=== PATIENT | male | born 1985 | race Caucasian/White ===

== ENCOUNTER → 2018-08-11 17:05 | Emergency (ER) | payer SELFPAY ==
[~2018-08-11 17:05] MED LIST: PPD test dose* 5 TU/0.1 ML TEST (*USE PPD ORDER SET*) ONE
--- OUTSIDE RECORDS SUMMARY | 2018-08-11 18:12 | XMS REPORT | Continuity of Care Document ---
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 Recreational Drug Use Never Used Drugs Allergies, Adverse Reactions, Alerts Description No Known Drug Allergies Medications Medication Date Status Form Strength Qnty SIG Indications Ordering Provider No Active 03/29/ Active Unknown Medications 2018 Ciprodex 02/18/ Hx Suspension 0.3-0.1% 1bottl 5 drops [place], 2018 - e twice a Leonardo, 03/28/ day x 10 M.D. 2018 days in affected ear for one week No Active 02/08/ Hx Unknown Medications 2018 - 2017 Fluticasone 01/26/ Hx Suspension 50mcg/Act 32gm 2 sprays [place], Kevin 2017 - both Leonardo, 02/07/ nostrils M.D. 2018 every day Prednisone 01/26/ Hx Tablets 10mg 10tabs 1 by mouth [place], 2017 - every Leonardo, 02/07/ morning M.D. 2018 Immunizations Description No Information Available Vital Signs Date Vital Result Comment 2018 11:14am Weight 234.00 lb Height 72 inches 6'0" BMI (Body Mass Index) 31.7 kg/m2 BP Systolic 123 mmHg BP Diastolic 81 mmHg Heart Rate 76 /min O2 % BldC Oximetry 97 % Body Temperature 97.6 F Pain Level 0 03/29/2018 4:47pm Weight 234.00 lb Height 72 inches 6'0" BMI (Body Mass Index) 31.7 kg/m2 BP Systolic 113 mmHg BP Diastolic 68 mmHg Heart Rate 81 /min O2 % BldC Oximetry 98 % Body Temperature 98.2 F Pain Level 0 02/18/2018 9:15am Weight 234.00 lb Height 72 inches 6'0" BMI (Body Mass Index) 31.7 kg/m2 BP Systolic 111 mmHg BP Diastolic 75 mmHg Heart Rate 81 /min O2 % BldC Oximetry 97 % Body Temperature 97.6 F Pain Level 5 ears 02/08/2018 4:46pm Weight 239.00 lb Height 72 inches 6'0" BMI (Body Mass Index) 32.4 kg/m2 BP Systolic 126 mmHg BP Diastolic 79 mmHg Heart Rate 79 /min O2 % BldC Oximetry 98 % Body Temperature 98.0 F Pain Level 0 01/26/2017 5:21pm Weight 226.00 lb Height 72 inches 6'0" BMI (Body Mass Index) 30.6 kg/m2 BP Systolic 125 mmHg BP Diastolic 79 mmHg Heart Rate 71 /min O2 % BldC Oximetry 96 % Body Temperature 97.5 F Results Description No Information Available Procedures Date Code Description Status 03/29/2018 71346 Tympanometry Completed 03/29/2018 92051 Audiometry, Comprehensive Completed 02/16/2018 14661 Tympanostomy, Gen. Anesth. Completed 02/16/2018 80892 Anesthesia, Tympanotomy Completed Encounters Type Date Location Provider Dx Diagnosis Office Visit 03/29/2018 Main Office Leonardo Onofre M.D. Z96.22 Myringotomy tube(s) 5:15p status Office Visit 02/08/2018 Main Office Leonardo Onofre M.D. H69.83 Other specified 5:00p disorders of Eustachian tube, bilateral J34.2 Deviated nasal septum J31.0 Chronic rhinitis Office Visit 01/26/2017 5:15p Main Office Leonardo Onofre J34.2 Deviated nasal M.D. septum J31.0 Chronic rhinitis H69.83 Other specified disorders of Eustachian tube, bilateral Plan of Treatment No Information Available
--- NOTE | 2018-08-12 07:55 | UC ---
Discharge - Sign-Out/Discharge Documenting (check all that apply): Post-Discharge Follow Up All imaging exams completed and their final reports reviewed: No Studies - Discharge Plan Condition: Stable Referrals: No Primary Care Phys,NOPCP [Primary Care Provider] - - Billing Disposition and Condition Condition: STABLE
== END | disposition home or self-care (01) ==
LOC: OHCORT 17:05
DX: R76.11 Nonspecific reaction to tuberculin skin test without active tuberculosis (principal)